=== PATIENT | female | born 1965 | race Caucasian/White ===

== ENCOUNTER 2019-04-14 15:04 | Emergency (ER) | payer OTHER ==
[~2019-04-14] VITALS: Ht 167.6 cm; Wt 99.8 kg
[2019-04-14] MEDS ORDERED: ADVAIR 100-501 EACH (15:23)
[2019-04-14] MEDS ORDERED: FLUCONAZOLE100 MG (15:24)
[2019-04-14] MEDS ORDERED: SINGULAIR 5MG5 MG (15:24)
== END 2019-04-14 19:14 | disposition home or self-care (01) ==
LOC: ER 15:04
DX: S93.401A Sprain of unspecified ligament of right ankle, initial encounter (principal); X50.0XXA Overexertion from strenuous movement or load, initial encounter; Y93.89 Activity, other specified; Y92.89 Other specified places as the place of occurrence of the external cause; Y99.8 Other external cause status

== ENCOUNTER 2019-04-20 21:05 | Emergency (ER) | payer OTHER ==
[~2019-04-20] VITALS: Ht 167.6 cm; Wt 99.8 kg
[~2019-04-20 21:05] MED LIST: ADVAIR 100-501 EACH; FLUCONAZOLE100 MG; SINGULAIR 5MG5 MG
== END 2019-04-20 23:42 | disposition home or self-care (01) ==
LOC: ER 21:05
DX: L27.1 Localized skin eruption due to drugs and medicaments taken internally (principal); T37.3X5A Adverse effect of other antiprotozoal drugs, initial encounter

== ENCOUNTER 2025-08-10 10:45 | Inpatient (IN) | payer OTHER ==
[~2025-08-10] VITALS: Ht 167.6 cm; Wt 102.1 kg
[2025-08-10 12:07] VITALS: BP 142/83
[2025-08-10] MEDS ORDERED: [UNRECOGNIZED DRUG - OTHER] (12:09)
[2025-08-10] MEDS ORDERED: ALBUTEROL0.63 MG/3 IH (12:09)
[2025-08-17] MEDS ORDERED: VANCOMYCIN HCL 1,000 MG VIAL ONE (12:07)
[2025-08-17] MEDS ORDERED: KETOROLAC TROMETHAMINE 60 MG VIAL IM ONE (12:17)
[2025-08-17] MEDS ORDERED: LIDOCAINE HCL 1%/EPINEPHRINE 20ML VIAL IJ ONE (12:18)
[2025-08-17] MEDS ORDERED: BUPIVACAINE HCL/MPF 0.5% 30ML VIAL ONE (12:18)
[2025-08-17] MEDS ORDERED: POVIDONE-IODINE 118 ML BOTT TOP ONE (13:59)
[2025-08-17] MEDS ORDERED: OxyCODONE HCL 5 MG TABLET (ROXICODONE) PO PRN (17:00)
[2025-08-17] MEDS ORDERED: GABAPENTIN 300 MG CAPSULE PO SCH (17:00)
[2025-08-17] MEDS ORDERED: ONDANSETRON HCL 2 MG/ML VIAL IV PRN (17:00)
[2025-08-17] MEDS ORDERED: SODIUM CHLORIDE 0.45 % 1,000 ML IV SCH (17:00)
[2025-08-17] MEDS ORDERED: ONDANSETRON HCL 2 MG/ML VIAL ONE (17:24)
[2025-08-17] MEDS ORDERED: ACETAMINOPHEN 500 MG GEL..CAP PO SCH (18:00)
[2025-08-17] MEDS ORDERED: hydrALAZINE HCL 20 MG VIAL IV PRN (18:45)
[2025-08-17] MEDS ORDERED: ACETAMINOPHEN 500 MG GEL..CAP PO ONE (18:55)
[2025-08-17] MEDS ORDERED: GABAPENTIN 300 MG CAPSULE PO ONE (18:55)
[2025-08-17 21:00] VITALS: BP 124/78; O2SAT 96
[2025-08-17] MEDS ORDERED: VANCOMYCIN HCL 1,000 MG VIAL IV SCH (21:00)
[2025-08-17] MEDS ORDERED: VANCOMYCIN HCL 1,000 MG in 0.9 % SODIUM CHLORIDE 250 ML IV SCH (21:00)
[2025-08-18 01:28] VITALS: BP 139/77; O2SAT 96
[2025-08-18] MEDS ORDERED: VANCOMYCIN HCL 1,000 MG VIAL ONE (06:45)
[2025-08-18] MEDS ORDERED: PERCOCET 5-3251 EACH PO (07:51)
[2025-08-18] MEDS ORDERED: ELIQUIS2.5 MG PO (07:51)
[2025-08-18] MEDS ORDERED: APIXABAN 2.5 MG TABLET PO SCH (09:00)
[2025-08-18 09:08] VITALS: BP 100/61; O2SAT 95
== END 2025-08-18 10:11 | disposition home or self-care (01) | DRG 482 ==
LOC: ADM 10:45 → SURH 08-17 07:00 → O/R 08-17 10:00 → SURH 08-17 10:45 → CIR.AMB 08-17 10:45 → EDSTATUS 08-17 10:45 → SURG 08-17 17:10
PROVIDERS: ADMIT Orthopaedic Surgery; ATTEND Orthopaedic Surgery
PROC: 0QU60JZ Supplement Right Upper Femur with Synthetic Substitute, Open Approach (ICD-10-PCS; 2025-08-17)
PROC: 0QU60KZ Supplement Right Upper Femur with Nonautologous Tissue Substitute, Open Approach (ICD-10-PCS; 2025-08-17)
PROC: 0QN Lower Bones, Release (ICD-10-PCS; principal; 2025-08-17 07:00)
DX: M87.851 Other osteonecrosis, right femur (principal)